=== PATIENT | female | born 1935 | race Caucasian/White ===

== ENCOUNTER → 2020-12-05 | Day surgery (SDC) | payer MEDICARE, OTHER ==
[~2020-12-05] MED LIST: LISINOPRIL10 MG PO; SIMVASTATIN20 MG PO
== END | disposition home or self-care (01) ==
LOC: OR 06:59
DX: R19.7 Diarrhea, unspecified (principal); K64.0 First degree hemorrhoids; E78.00 Pure hypercholesterolemia, unspecified; I10 Essential (primary) hypertension; Z20.822 Contact with and (suspected) exposure to COVID-19; Z79.82 Long term (current) use of aspirin; Z79.899 Other long term (current) drug therapy
CPT/HCPCS: 87635; J2001; J2704; J7040

== ENCOUNTER → 2022-07-06 | Outpatient (CLI) | payer MEDICARE | LOC: KOH-I 10:25 | DX: J22 Unspecified acute lower respiratory infection (principal) | CPT/HCPCS: 71046 ==